=== PATIENT | female | born 2000 | race Two or more races ===

== ENCOUNTER → 2022-10-28 | Outpatient (CLI) | payer MEDICAID ==
[2022-10-28 07:13] LABS: Urine Bacteria None Seen /hpf (None Seen)
[2022-10-28 07:26] LABS: Basophils # (auto) 0 10 ^3/uL (0-0.2); Basophils % (auto) 0.5 % (0.0-2.0); Eosinophils % (auto) 1.9 % (0.0-7.0); Hemoglobin 13.1 g/dL (12.2-16.2); Monocytes # (auto) 0.5 10 ^3/uL (0-1.3); Monocytes % (auto) 5.8 % (0.0-12.0); Nucleated Red Blood Cells % 0.1 %
[2022-10-28 07:27] LABS: Eosinophils # (auto) 0.2 10 ^3/uL (0-0.8); Lymphocytes % (auto) 25.5 % (10.0-50.0); Mean Corpuscular Hemoglobin 26.8 pg (28.0-32.0); Mean Corpuscular Hgb Conc. 33.6 g/dL (32.0-36.0); Mean Corpuscular Volume 79.7 fL (80.0-100.0); Neutrophils # (auto) 5.3 10 ^3/uL (1.6-8.6); Neutrophils % (auto) 66.3 % (37.0-80.0); Red Blood Cells 4.89 10^6/uL (4.0-5.20); Red Cell Distribution Width 13.4 % (11.8-14.3)
[2022-10-28 08:01] LABS: Urine Blood Negative /uL (Negative); Urine Specific Gravity 1.035 (1.001-1.035)
[2022-10-28 08:03] LABS: Albumin 3.8 g/dL (3.4-5.0); Calcium 8.1 mg/dL (8.5-10.1); Potassium 3.5 mmol/L (3.5-5.1)
[2022-10-28 08:08] LABS: BUN/Creatinine Ratio 10.7; Bilirubin, Total 0.6 mg/dL (0.2-1.0); Total Protein 7.4 g/dL (6.4-8.2)
== END | disposition home or self-care (01) ==
LOC: LAB 07:00
PROVIDERS: ATTEND Internal Medicine
DX: Z00.00 Encounter for general adult medical examination without abnormal findings (principal); K52.9 Noninfective gastroenteritis and colitis, unspecified
CPT/HCPCS: 36415; 80053; 80061; 81001; 82150; 83036; 83690; 84443; 85025; 87045; 87427; 87493

== ENCOUNTER → 2024-03-12 | Outpatient (CLI) | payer MEDICAID ==
[2024-03-12 10:34] LABS: Basophils # (auto) 0.1 10 ^3/uL (0-0.2); Basophils % (auto) 0.8 % (0.0-2.0); Eosinophils # (auto) 0.1 10 ^3/uL (0-0.8); Eosinophils % (auto) 1.5 % (0.0-7.0); Hematocrit 38.1 % (36.0-46.0); Hemoglobin 12.5 g/dL (12.2-16.2); Lymphocytes # (auto) 2.4 10 ^3/uL (0.4-5.4); Lymphocytes % (auto) 31.3 % (10.0-50.0); Mean Corpuscular Hemoglobin 24.8 pg (28.0-32.0); Mean Corpuscular Hgb Conc. 32.9 g/dL (32.0-36.0); Mean Corpuscular Volume 75.6 fL (80.0-100.0); Monocytes # (auto) 0.4 10 ^3/uL (0-1.3); Monocytes % (auto) 5.7 % (0.0-12.0); Neutrophils # (auto) 4.7 10 ^3/uL (1.6-8.6); Neutrophils % (auto) 60.7 % (37.0-80.0); Red Blood Cells 5.04 10^6/uL (4.0-5.20); White Blood Cell 7.7 10^3/uL (4.4-10.8)
[2024-03-12 11:01] LABS: Alanine Aminotransferase 19 U/L (7-40); Albumin 4.6 g/dL (3.2-4.8); Alkaline Phosphatase 76 U/L (46-116); Anion Gap 7 (5-15); Aspartate Aminotransferase 17 U/L (13-40); BUN/Creatinine Ratio 9.7 (10.0-20.0); Blood Urea Nitrogen 6 mg/dL (9-23); Calcium 9.1 mg/dL (8.5-10.1); Carbon Dioxide 24 mmol/L (20-30); Chloride 106 mmol/L (98-107); Glucose 99 mg/dL (74-106); LDL Cholesterol 113 mg/dL (< 100); Potassium 3.7 mmol/L (3.5-5.1); Sodium 137 mmol/L (136-145); Triglycerides 128 mg/dL (< 150)
[2024-03-12 11:02] LABS: Bilirubin, Total 0.8 mg/dL (0.2-1.0); Cholesterol 155 mg/dL (< 200); HDL Cholesterol 38 mg/dL (40-59); Total Protein 7.5 g/dL (5.7-8.2)
[2024-03-12 12:25] LABS: Urine Bacteria FEW /hpf (None Seen); Urine Blood TRACE /uL (Negative); Urine Budding Yeast OCCASIONAL /hpf (None Seen); Urine Clarity Clear (Clear); Urine Color Yellow (Yellow); Urine Mucus FEW (None Seen); Urine Protein, UAD TRACE (Negative); Urine Specific Gravity 1.029 (1.001-1.035); Urine Urobilinogen Normal (Negative); Urine WBC 1 /hpf (0 - 5); Urine pH 5.5 (5.0-9.0)
== END | disposition home or self-care (01) ==
LOC: LAB 10:17
PROVIDERS: ATTEND Internal Medicine
DX: E03.9 Hypothyroidism, unspecified (principal)
CPT/HCPCS: 36415; 80053; 80061; 81001; 83036; 84443; 85025

== ENCOUNTER → 2024-12-09 | Outpatient (CLI) | payer MEDICAID ==
[2024-12-09 15:01] LABS: Triglycerides 96 mg/dL (< 150)
[2024-12-09 15:02] LABS: Cholesterol 157 mg/dL (< 200)
[2024-12-09 15:03] LABS: HDL Cholesterol 43 mg/dL (40-59)
[2024-12-09 15:06] LABS: LDL Cholesterol 116 mg/dL (< 100)
== END | disposition home or self-care (01) ==
LOC: LAB 13:45
PROVIDERS: ATTEND Internal Medicine
DX: E78.5 Hyperlipidemia, unspecified (principal)
CPT/HCPCS: 36415; 80061

== ENCOUNTER 2025-11-04 12:11 | Emergency (ER) | payer MEDICAID ==
[~2025-11-04] VITALS: Ht 170.2 cm; Wt 84.1 kg
--- NOTE | 2025-11-04 13:15 | ED.PDOC ---
GI ASSESSMENT HPI Comments 25 y/o F, presents to the ED for CC of abdominal pain. Patient states, she has been experiencing RLQ abdominal pain with associated symptoms of nausea/vomiting onset, last night (11/04/25). Patient relays, to have further associated symptoms of inability to void and constipation. Patient reports, pain to worsen with movement and upon palpitation. Patient comments, having her IUD discounted x1week prior to commencement of symptoms. Patient denies diarrhea, fever, or chills. No other symptoms or modifying factors are present at this time. Chief Complaint: Abdominal Pain Time Seen by MD: 13:00 Reviewed Notes: Nurses Notes, Medications, Allergies Allergies: Coded Allergies: NO KNOWN ALLERGIES (Unverified , 11/04/25) Home Meds Active Scripts Ibuprofen (Ibuprofen) 400 Mg Tab, 1 TAB PO Q6HPRN for 5 Days, #20 TAB Prov:ANA ALFARO MD 11/04/25 Information Source: Patient Mode of Arrival: Ambulatory Timing: Hours Duration: Since onset Prehospital treatment: None Quality: None Vomitus: Watery Severity: Moderate Recent: None Recent Hx of: None Pain Location: RLQ Modifying Factors: Movement Associated sign and symptoms: Nausea, Vomiting, Abdominal Pain Past Medical History PAST MEDICAL HISTORY: Denies Surgical History: Denies all surgeries LINE SERVICE ATTENDANT History: Denies all LINE SERVICE ATTENDANT Hx Family History Family History: Unknown Social History Smoker: Non-Smoker Alcohol: Denies ETOH Use Drugs: Denies Drug Use Lives In: Home Constitutional: denies: chills, diaphoresis, fatigue, fever, malaise, sweats, weakness, others EENTM: denies: blurred vision, double vision, ear bleeding, ear discharge, ear drainage, ear pain, ear ringing, eye pain, eye redness, hearing loss, mouth pain, mouth swelling, nasal discharge, nose bleeding, nose congestion, nose pain, photophobia, tearing, throat pain, throat swelling, voice changes, others Respiratory: denies: cough, hemoptysis, orthopnea, SOB at rest, shortness of breath, SOB with excertion, stridor, wheezing, others Cardiovascular: denies: chest pain, dizzy spells, diaphoresis, Dyspnea on exertion, edema, irregular heart beat, left arm pain, lightheadedness, palpitations, PND, syncope, others Gastrointestinal: reports: abdominal pain, constipated, nausea, vomiting; denies: abdomen distended, blood streaked bowels, diarrhea, dysphagia, difficulty swallowing, hematemesis, melena, poor appetite, poor fluid intake, rectal bleeding, rectal pain, others Genitourinary: denies: abnormal vagina bleeding, burning, dyspareunia, dysuria, flank pain, frequency, hematuria, incontinence, pain, , vagina discharge, urgency, others Neurological: denies: dizziness, fainting, headache, left sided numbness, left sided weakness, numbness, paresthesia, pre-existing deficit, right sided numbness, right sided weakness, seizure, speech problems, tingling, tremors, weakness, others Musculoskeletal: denies: back pain, gout, joint pain, joint swelling, muscle pain, muscle stiffness, neck pain, others Integumetry: denies: bruises, change in color, change in hair/nails, dryness, laceration, lesions, lumps, rash, wounds, others Allergic/Immunocompromised: denies: Difficulty Healing, Frequent Infections, Hives, Itching, others Hematologic/Lymphatic: denies: anemia, blood clots, easy bleeding, easy bruis ing, swollen glands, others Endocrine: denies: excessive hunger, excessive sweating, excessive thirst, exc essive urination, flushing, intolerance to cold, intolerance to heat, unexplained weight gain, unexplained weight loss, others Psychiatric: denies: anxiety, bipolar disorder, depression, hopeless, panic disorder, schizophrenia, sleepless, suicidal, others All Other Systems: Reviewed and Negative Physical Exam General Appearance: No Apparent Distress, Normal HEENT: Normal ENT Inspection, Pharynx Normal Neck: Full Range of Motion, Non-Tender, Normal, Normal Inspection Respiratory: Chest Non-Tender, Lungs Clear, No Accessory Muscle Use, No Respiratory Distress, Normal Breath Sounds Cardiovascular: No Edema, No Murmur, No Gallop, Normal Peripheral Pulses, Regular Rate/Rhythm Breast Exam: Deferred Gastrointestinal: No Organomegaly, No Pulsatile Mass, Normal Bowel Sounds, Other (RIGHT INGUINAL TTP) Genitalia: Deferred Pelvic: Deferred Rectal: Deferred Extremities: No calf tenderness, Normal capillary refill, Normal inspection, Normal range of motion, Non-tender, No pedal edema Musculoskeletal : Apperance: Normal Neurologic: Alert, state archivist II-XII nml as Tested, No Motor Deficits, Normal Affect, Normal Mood, No Sensory Deficits Cerebellar Function: Normal Reflexes: Normal Skin: Dry, Normal Color, Warm Lymphatic: No Adenopathy Was a procedure done? Was a procedure done?: No GI differential Dx Differential Diagnosis: Appendicitis, Constipation, Diverticular disease, Gastritis/PUD, Gastroenteritis, Inflammatory BD, Ovarian cyst/torsion X-Ray, Labs, Meds, VS Vital Signs Date Time Temp Pulse Resp B/P (MAP) Pulse Ox O2 Delivery O2 Flow Rate FiO2 11/04/25 15:57 61 17 99 Room Air 11/04/25 15:57 98.6 61 17 109/64 (79) 99 98.6 11/04/25 12:12 97.4 74 20 118/77 98 97.4 Lab Test 11/04/25 14:03 11/04/25 14:00 Range/Units White Blood Count 8.0 4.4-10.8 10^3/uL Red Blood Count 4.82 4.0-5.20 10^6/uL Hemoglobin 11.9 L 12.2-16.2 g/dL Hematocrit 36.9 36.0-46.0 % Mean Corpuscular Volume 76.6 L 80.0-100.0 fL Mean Corpuscular Hemoglobin 24.6 L 28.0-32.0 pg Mean Corpuscular Hemoglobin Concent 32.1 32.0-36.0 g/dL Red Cell Distribution Width 14.4 H 11.8-14.3 % Platelet Count 271 140-450 10^3/uL Mean Platelet Volume 8.6 6.9-10.8 fL Neutrophils (%) (Auto) 72.8 37.0-80.0 % Lymphocytes (%) (Auto) 20.8 10.0-50.0 % Monocytes (%) (Auto) 4.4 0.0-12.0 % Eosinophils (%) (Auto) 1.2 0.0-7.0 % Basophils (%) (Auto) 0.8 0.0-2.0 % Neutrophils # (Auto) 5.8 1.6-8.6 10 ^3/uL Lymphocytes # (Auto) 1.7 0.4-5.4 10 ^3/uL Monocytes # (Auto) 0.3 0-1.3 10 ^3/uL Eosinophils # (Auto) 0.1 0-0.8 10 ^3/uL Basophils # (Auto) 0.1 0-0.2 10 ^3/uL Nucleated Red Blood Cells 0.0 % Sodium Level 140 136-145 mmol/L Potassium Level 4.1 3.5-5.1 mmol/L Chloride Level 105 98-107 mmol/L Carbon Dioxide Level 26 20-31 mmol/L Anion Gap 9 5-15 Blood Urea Nitrogen 8 L 9-23 mg/dL Creatinine 0.65 0.550-1.02 mg/dL Glomerular Filtration Rate Calc 124 >90 mL/min BUN/Creatinine Ratio 12.3 10.0-20.0 Serum Glucose 109 H 74-106 mg/dL Calcium Level 9.3 8.7-10.4 mg/dL Urine Color Colorless Yellow Urine Clarity Clear Clear Urine pH 6.5 5.0-9.0 Urine Specific [place] 1.008 1.001-1.035 Urine Protein Negative Negative Urine Ketones Negative Negative Urine Blood Negative Negative /uL Urine Nitrite Negative Negative Urine Bilirubin Negative Negative Urine Urobilinogen Normal Negative mg/dL Urine Leukocyte Esterase Trace Negative /uL Urine RBC 1 0 - 4 /hpf Urine Microscopic WBC 3 0-5 /HPF Urine Squamous Epithelial Cells Few <5 /hpf Urine Bacteria None seen None Seen /hpf Urine Glucose Normal Normal mg/dL Urine Test Negative Negative [place] [address] Ph: [phone] DIAGNOSTIC IMAGING Diagnostic Imaging Report : [id number] Signed PATIENT: ABHISHEK NGUYEN ACCT: [id number] UNIT: [id number] : 2000 LOC: ER ROOM / BED: / AGE / SEX: 25 / F ADM STATUS: REG ER SERVICE [id number] ORDERING PHYSICIAN: ANA ALFARO MD PROCEDURE(s): PELUS - PELVIC REASON: r/o ovarian torsion on right ORDER NUMBER(s): [id number], ACCESSION NUMBER(s): [id number] INDICATION: r/o ovarian torsion on right TECHNIQUE: Multiple real-time grayscale transabdominal sonographic images along with color and duplex Doppler of the uterus and ovaries were obtained. COMPARISON: None FINDINGS: The uterus measures 9.0 x 4.3 x 5.8 cm. The endometrial stripe measures 1.2 cm. Right ovary measures 5.4 x 5.4 x 6.0 cm with normal Doppler color flow. Probable right ovarian hemorrhagic cyst measures 5.2 cm. Left ovary measures 3.2 x 2.6 x 2.9 cm with normal Doppler color flow IMPRESSION: Probable right ovarian hemorrhagic cyst measures 5.2 cm. Recommend follow-up ultrasound in 6 weeks. ATED BY: DALE CARDOSO MD DICTATED DATE/TIME: 11/04/251407 SIGNED BY: DALE CARDOSO MD SIGNED DATE/TIME: 11/04/251407 CC: X-Ray, Labs, Meds, VS Comment 25-year-old female here today with a presentation consistent with ovarian hemor rhagic cyst as per ultrasound findings. Doubt ovarian torsion given ultrasound shows normal flow although I had an extensive discussion with the patient about the importance of returning to the ER should her pain suddenly returned or should it persist or should she develop any new or concerning symptoms. Patient is to follow up with the primary care provider and OBGYN within 2-3 days for re- evaluation. If she is not able to achieve this follow up, patient is to return to the ER for re-evaluation. At this time, I doubt ovarian torsion, TOA, UTI, pyelonephritis, appendicitis, bowel obstruction, or any other significant acute pathology. Patient reported significant improvement in her symptoms and in his discharged home in stable condition ambulating with a steady gait and in no distress. Images Reviewed?: Images reviewed and evaluated by me Time of 1ST Reevaluation: 13:30 Reevaluation 1ST: Improved Patient Education/Counseling: Diagnosis, Treatment Family Education/Counseling: No Family Present SEPSIS Sepsis Screen Date sepsis recognized/suspect: Nov 04, 2025 Time Sepsis recognized/suspect: 1212 Recent Procedure: No On Antibiotic Therapy: No Respiratory Rate >20: No Heart Rate >90: No Temp<36 C (96.8 F) or >38.3 C: No SBP <90 or MAP <65 mmHG: No New Acute Mental Status Change: No Is the patient on CPAP, BIPAP,: No Physician Orders Pelvic (11/04/25 13:29) Vital Signs Date Time Temp Pulse Resp B/P (MAP) Pulse Ox O2 Delivery O2 Flow Rate FiO2 11/04/25 15:57 61 17 99 Room Air 12/9/25 15:57 98.6 61 17 109/64 (79) 99 98.6 11/04/25 12:12 97.4 74 20 118/77 98 97.4 Laboratory Tests Test 11/04/25 14:03 White Blood Count 8.0 10^3/uL (4.4-10.8) Departure 1 Departure Time of Disposition: 14:12 Impression: Primary Impression: Hemorrhagic cyst of ovary Disposition: HOME / SELF CARE / HOMELESS Condition: Stable e-Prescriptions Ibuprofen (Ibuprofen) 400 Mg Tab 1 TAB PO Q6HPRN for 5 Days, #20 TAB Prov: ANA ALFARO MD 11/04/25 Critical Care Note Critical Care Time?: No Stability Stability form required: No Heart Score Heart Score: Heart Score Response (Comments) Value History N/A 0 EKG N/A 0 Age N/A 0 Risk Factors N/A 0 Troponin N/A 0 Total 0 I personally scribed for ANA ALFARO MD ([email or web address]) on 11/04/25 at 13:15. Electronically submitted by Elle Worthy ([employer]). I personally scribed for ANA ALFARO MD ([email or web address]) on 11/04/25 at 14:05. Electronically submitted by Elle Worthy ([employer]). I personally scribed for ANA ALFARO MD ([email or web address]) on 11/04/25 at 14:17. Electronically submitted by Elle Worthy ([employer]). ANA ALFARO MD Nov 04, 2025 13:15
--- NOTE | 2025-11-04 14:11 | DVH ---
INDICATION: r/o ovarian torsion on right TECHNIQUE: Multiple real-time grayscale transabdominal sonographic images along with color and duplex Doppler of the uterus and ovaries were obtained. COMPARISON: None FINDINGS: The uterus measures 9.0 x 4.3 x 5.8 cm. The endometrial stripe measures 1.2 cm. Right ovary measures 5.4 x 5.4 x 6.0 cm with normal Doppler color flow. Probable right ovarian hemorrhagic cyst measures 5.2 cm. Left ovary measures 3.2 x 2.6 x 2.9 cm with normal Doppler color flow IMPRESSION: Probable right ovarian hemorrhagic cyst measures 5.2 cm. Recommend follow-up ultrasound in 6 weeks.
[2025-11-04 14:22] LABS: Hemoglobin 11.9 g/dL (12.2-16.2); Mean Corpuscular Volume 76.6 fL (80.0-100.0)
[2025-11-04 14:24] LABS: Hematocrit 36.9 % (36.0-46.0); Mean Corpuscular Hemoglobin 24.6 pg (28.0-32.0); Nucleated Red Blood Cells % 0.0 %
[2025-11-04 14:26] LABS: Chloride 105 mmol/L (98-107); Potassium 4.1 mmol/L (3.5-5.1); Sodium 140 mmol/L (136-145)
[2025-11-04 14:27] LABS: Anion Gap 9 (5-15); Calcium 9.3 mg/dL (8.7-10.4); Carbon Dioxide 26 mmol/L (20-31)
[2025-11-04 14:32] LABS: BUN/Creatinine Ratio 12.3 (10.0-20.0)
[2025-11-04 14:37] LABS: Blood Urea Nitrogen 8 mg/dL (9-23); Glucose 109 mg/dL (74-106)
[2025-11-04 14:43] LABS: Urine Protein, UAD Negative (Negative)
[2025-11-04] MEDS ORDERED: IBUP-1453 PO (15:26)
[2025-11-04 15:57] VITALS: BP 109/64; PULSE 61; RESP 17; TEMP 98.6; O2SAT 99
== END 2025-11-04 15:59 | disposition home or self-care (01) ==
LOC: ER 12:11
DX: N83.209 Unspecified ovarian cyst, unspecified side (principal); Z79.899 Other long term (current) drug therapy
CPT/HCPCS: 36415; 76856; 80048; 81001; 81025; 85025